=== PATIENT | female | born 1950 | race Caucasian/White ===

== ENCOUNTER → 2021-01-05 10:41 | Outpatient (CLI) | payer MEDICARE, SELFPAY ==
[2021-01-03 10:31] VITALS: BMI 26.1
--- NOTE | 2021-01-05 10:48 | US_ITS ---
PROCEDURES: ULTRASOUND AORTA REASON FOR EXAM: Female, 70 years old. ENLARGED AORTA TECHNIQUE: Ultrasound evaluation of the aorta was performed with real-time and static melchor-scale imaging. COMPARISON: None. FINDINGS: No significant change in the diameter of the proximal and mid and distal abdominal aorta which ranges between 1.2 -- 1.4 cm. The right iliac artery measures 0.9 cm. the left iliac artery measures 0.6. No evidence of aneurysmal dilatation noted. US/Aorta IMPRESSION: Negative study of the aorta for the patient''s age. Electronically Signed: Eva Nelson, at 12:27 EDT Tel , Service support ,
== END ==
PROVIDERS: PCP Internal Medicine; Referring Provider Internal Medicine; Visit Provider Internal Medicine
DX: I77.89 Other specified disorders of arteries and arterioles (principal)
CPT/HCPCS: 76775

== ENCOUNTER → 2021-02-02 10:56 | Outpatient (CLI) | payer MEDICARE, SELFPAY ==
[2021-01-03 10:31] VITALS: BMI 26.1
--- NOTE | 2021-02-02 10:58 | MRI_ITS ---
HISTORY: pain low back and left leg EXAMINATION: MR Spine Lumbar W/O Contrast TECHNIQUE: Multiplanar and multisequence MR images of the lumbar spine. IV Contrast dosage and agent: None. COMPARISON: None FINDINGS: VERTEBRAE: Normal vertebral body heights, alignment and lordosis. Marrow signal intensity is normal. No expansile or destructive lesion. CORD: Normal visualized portions of the spinal cord and cauda equina, with the tip of the conus medullaris at the T12-L1 level. No intradural or intramedullary soft tissue mass or epidural fluid collection. SOFT TISSUES: Unremarkable. L1/L2: No disc bulge, central canal stenosis, or neural foraminal stenosis. L2/L3: Asymmetric annular bulge approaches on the left neural foramen without significant central or right foraminal stenosis. L3/L4: No disc bulge, central canal stenosis, or neural foraminal stenosis. L4/L5: Mild circumferential annular bulge without significant central or neural foraminal stenosis. L5/S1: No disc bulge, central canal stenosis, or neural foraminal stenosis. MRI/Spine Lumbar (Routine) IMPRESSION: Mild left foraminal stenosis at L2-3 as above. at [id number] Reported and signed by: David Grewal MD Electronically Signed: David Grewal MD at 0:54 EDT Tel , Service support ,
== END ==
PROVIDERS: PCP Internal Medicine; Referring Provider Orthopaedic Surgery; Visit Provider Orthopaedic Surgery
DX: M51.36 Other intervertebral disc degeneration, lumbar region (principal)
CPT/HCPCS: 72148